=== PATIENT | male | born 1940 | race Caucasian/White ===

== ENCOUNTER 2021-04-24 07:51 | Outpatient (CLI) | payer MEDICARE, SELFPAY | END 2021-04-24 07:52 | disposition home or self-care (01) | LOC: CHSIMG 07:57 | PROVIDERS: PCP Family Medicine; Visit Provider Family Medicine | DX: S63.501A Unspecified sprain of right wrist, initial encounter (principal) | CPT/HCPCS: 99199 ==

== ENCOUNTER 2021-04-27 07:35 | Outpatient (CLI) | payer MEDICARE, SELFPAY ==
--- NOTE | ~2021-04-27 | MR_ITS ---
EXAMINATION: MR wrist RT wo con DATE: 04/27/2021 10:23 INDICATION: Anterior right wrist pain post fall TECHNIQUE: Magnetic resonance imaging (MRI) of the right wrist was performed without intravenous cont rast. Sequences performed include axial, sagittal and coronal PD-weighted propeller FSE and PD-weight ed propeller FS FSE. COMPARISON: None FINDINGS: Evaluation mildly limited by motion artifact or blurring to some degree on all sequences. Intrinsic ligaments: The lunotriquetral ligament is normal. There is a tear of the volar and several members components of the scapholunate ligament. At least a portion of the dorsal component of the scapholunate ligament a ppears to remain intact. There is mild widening of the scapholunate interval. Triangular fibrocartilage complex (TFCC): Linear fluid signal intensity tear defect tear along the radial origin of the central fibrocartilagin ous disc of the triangular fibrocartilaginous complex. The dorsal and volar radioulnar ligaments, the foveal and ulnar styloid attachments as well as the ulnar triquetral ligaments appear to remain inta ct. There is mild stripping along the ulnar sided ulnar insertion of the extensor carpi ulnaris subs radha allowing slight subluxation of the extensor carpi ulnaris tendon across the ulnar rim of the EC U groove. Extensor wrist: Mild tendinopathy without discrete tear of the extensor carpi ulnaris tendon centered at the level of the ulnar styloid process. Extensor tendons of the wrist are otherwise normal. No tenosynovitis. Flexor wrist: The flexor tendons of the wrist are normal. No abnormality in the carpal tunnel with normal median n erve. Guyon's canal: Guyon's canal including the ulnar nerve and artery are normal. Bones/other: Small joint effusions at the distal radioulnar, wrist and midcarpal joints. Nonspecific marrow edema along the distal aspect of the radius and throughout the carpus. No fracture, erosions, avascular nec rosis or abnormal marrow replacing process. There does appear to be joint space narrowing with nonuni form cartilage loss at the distal radioulnar, wrist, midcarpal, triscaphe and first carpal metacarpal joints. 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 Diffuse soft tissue swelling with subcutaneous edema throughout the wrist and visualized proximal hand. IMPRESSION: 1. Tear of the central and volar components of the scapholunate ligament. 2. Partial tear at the radial attachment of the central fiber cartilaginous disc of the triangular fi brocartilage complex. 3. Straightening of the ulnar insertion of the ulnar side of the extensor carpi ulnaris subsheath all owing partial subluxation of the tendon across the tip of the ulnar styloid process and likely second yazmin mild tendinopathy without discrete tear of the extensor carpi ulnaris tendon. 4. Nonspecific marrow edema in the carpus and distal radius which could be related to polyarticular o steoarthritis as detailed above with bone contusion related to prior trauma. No evident fracture. 5. Small likely reactive joint effusions at the wrist, distal radioulnar and midcarpal joints. Reviewed, dictated and finalized at location A. MATED LOGIST[employer] SPECIALIST IMPRESSION: 1. Tear of the central and volar components of the scapholunate ligament. 2. Partial tear at the radial attachment of the central fiber cartilaginous dis c of the triangular fibrocartilage complex. 3. Straightening of the ulnar insertion of the ulnar side of the extensor carpi ulnaris subsheath allowing partial subluxation of the tendon across the tip of the ulnar styloid process and likely secondary mild tendinopathy without discr
== END 2021-04-27 07:36 | disposition home or self-care (01) ==
LOC: CHSIMG 07:36
PROVIDERS: PCP Family Medicine; Visit Provider Family Medicine
DX: S63.501A Unspecified sprain of right wrist, initial encounter (principal)
CPT/HCPCS: 73221

== ENCOUNTER 2021-05-03 08:50 | Outpatient (CLI) | payer MEDICARE, SELFPAY ==
--- NOTE | ~2021-05-03 | XR_ITS ---
XR wrist RT min 3V DATE: 05/03/2021 09:15 INDICATION: Right wrist pain TECHNIQUE: 3 views COMPARISON: 04/27/2021 MR right wrist examination FINDINGS: Diffuse osteopenia. There is osteoarthritis at the first through third metacarpophalangeal joints, most prominent at the third metacarpophalangeal joint. No fracture, dislocation, periosteal reaction or bone destruction. IMPRESSION: Osteopenia Osteoarthritis Reviewed, dictated and finalized at location A. NESS SYSTEMS MANAGER IMPRESSION: Osteopenia Osteoarthritis
== END 2021-05-03 08:51 | disposition home or self-care (01) ==
PROVIDERS: PCP Family Medicine; Visit Provider Orthopaedic Surgery
DX: M25.531 Pain in right wrist (principal)
CPT/HCPCS: 73110